=== PATIENT | male | born 1960 | race Caucasian/White ===

== ENCOUNTER → 2016-08-06 | Day surgery (SDC) | payer OTHER ==
[~2016-08-06] MED LIST: ATORVASTATIN CA10 MG PO; CYMBALTA PO; SERTRALINE HCL50 MG PO
--- NOTE | ~2016-08-06 | OR ---
Unit #: [id number] #: [id number] Patient: DALE ROB [id number] [address] [address] [id number] O MR#: [id number] NAME: DALE ROB ROOM: Date of Procedure: 08/06/2016 Admission Date: 08/06/2016 Surgeon: Thanh Ballesteros M.D. : 1960 Attending Physician: Thanh Ballesteros M.D. Primary Care Physician: Paul Montoya Jr., M.D. OPERATIVE REPORT PROCEDURE PERFORMED Colonoscopy to cecum. INDICATIONS FOR PROCEDURE A 56-year-old gentleman with history of polyps in the past. MEDICATIONS Monitored anesthesia. POSTOPERATIVE FINDINGS Normal exam. Good prep. Mild diverticulosis, and internal hemorrhoids. PLAN 1. High-fiber diet. Stool softeners as needed. 2. Colonoscopy in 5 to 10 years. DESCRIPTION OF PROCEDURE The patient was explained of the procedure, risks, and benefits along with risks and benefits of anesthesia. He was brought to the endoscopy room. Propofol anesthesia was given. Rectal exam was done, which was normal. Colonoscope was lubricated, passed up the rectum, advanced under direct vision all the way to the cecum. Cecum was identified by ileocecal valve and appendiceal orifice. He tolerated it well. No major complications were seen. Dictated by... Jin Pearce/irving TD: 08/06/2016 14:12 JOB #: [id number] Unit #: [id number] #: [id number] Patient: DALE ROB OPERATIVE REPORT Page 1 of 1 X Thanh Ballesteros MD X PROCEDURE OPERATIVE NOTE
== END | disposition home or self-care (01) ==
LOC: COPS 07-23 13:00
DX: K57.30 Diverticulosis of large intestine without perforation or abscess without bleeding (principal); K64.8 Other hemorrhoids; K21.9 Gastro-esophageal reflux disease without esophagitis; Z98.890 Other specified postprocedural states